=== PATIENT | female | born 1975 | race Caucasian/White ===

== ENCOUNTER 2019-07-27 19:49 | Inpatient (IN) | payer OTHER ==
[~2019-07-27] VITALS: Ht 160 cm; Wt 56.2 kg
[~2019-07-27 19:49] MED LIST: BENTYL; PROTONIX; Z.0.BENTYL20 MG PO; Z.0.LEXAPRO10 MG PO; Z.0.PROTONIX40 MG PO; [UNRECOGNIZED DRUG - OTHER]
[2019-07-27] MEDS ORDERED: SODIUM CHLORIDE 0.9% 1000ML 1,000 ML IV STA (19:59)
[2019-07-27] MEDS ORDERED: ONDANSETRON HCL INJ 2MG/ML 2ML 2 MG/ML VIAL IV NR (20:00)
[2019-07-27] MEDS ORDERED: DICYCLOMINE HCL 20 MG/2 ML VIAL IM ONE (20:00)
[2019-07-27] MEDS ORDERED: MORPHINE SULFATE INJ 4 MG/ML INJ 1ML IV NR (20:15)
[2019-07-27] MEDS ORDERED: DIATRIZOATE MEGL/DIATRIZOA SOD 30 ML BTL PO ONE (20:23)
[2019-07-27 20:39] LABS: BASOPHILS % 0.3 % (0.0-1.0); EOSINOPHILS # (AUTO) 0.1 (0.0-0.4); EOSINOPHILS % 0.6 % (0.0-6.0); HEMATOCRIT 27.7 % (34.2-44.1); HEMOGLOBIN 7.9 g/dL (12.0-16.0); LYMPHOCYTES # (AUTO) 1.2 (1.0-3.2); LYMPHOCYTES % 7.9 % (18.0-39.1); MEAN CORPUSCULAR HEMOGLOBIN 17.6 pg (28-32); MEAN CORPUSCULAR HGB CONC 28.5 g/dL (31-35); MEAN CORPUSCULAR VOLUME 61.7 fL (81-99); MONOCYTES # (AUTO) 2.8 (0.2-0.8); NEUTROPHILS # (AUTO) 11.1 (2.1-6.9); NEUTROPHILS % 72.1 % (38.7-80.0); PLATELET COUNT 1045 x10e3/uL (140-360); RED BLOOD COUNT 4.49 x10e6/uL (3.6-5.1); RED CELL DISTRIBUTION WIDTH 18.1 % (11.7-14.4)
[2019-07-27 20:57] LABS: ALBUMIN 3.9 g/dL (3.5-5.0); ALBUMIN/GLOBULIN RATIO 0.8 (0.8-2.0); ANION GAP 19.5 mmol/L (8-16); CALCIUM 10.6 mg/dL (8.4-10.2); CREATININE, SERUM 1.29 mg/dL (0.57-1.11); POTASSIUM 3.5 mmol/L (3.5-5.1)
[2019-07-27 21:03] LABS: CREATINE KINASE MB 1.2 ng/mL (0-5.0)
[2019-07-27] MEDS ORDERED: PIPER-TAZ 3.375 GM 50 ML IV ONE (21:33)
[2019-07-27] MEDS ORDERED: SODIUM CHLORIDE 0.9% 50ML 50 ML ONE (22:10)
[2019-07-27] MEDS ORDERED: IOPAMIDOL 370 MG/ML 200 ML INFUS..BTL INJ ONE (22:10)
[2019-07-27 22:23] LABS: BILIRUBIN,URINE NEGATIVE (NEGATIVE); CLARITY,URINE SL CLOUDY (CLEAR); COLOR,URINE YELLOW (YELLOW); KETONES,URINE NEGATIVE (NEGATIVE); LEUKOCYTE ESTERASE ,URINE NEGATIVE (NEGATIVE); NITRITE,URINE NEGATIVE (NEGATIVE); PROTEIN,URINE DIPSTICK TRACE (NEGATIVE); URINE UROBILINOGEN 0.2 mg/dL (0.2 - 1)
[2019-07-27 22:28] LABS: BACTERIA,URINE FEW /HPF; EPITHELIAL CELLS,URINE MANY /LPF
--- NOTE | 2019-07-27 22:32 | Diagnostic Imaging Report ---
CT Abdomen And Pelvis with Intravenous Contrast INDICATION: Nodule/vomiting, history of Crohn's disease ^abd pain TECHNIQUE: Thin collimation axial images obtained from the diaphragm to the level of the pubic symphysis following the uneventful administration of 100 cc of low osmolar, nonionic intravenous contrast. Dose reduction techniques used: Automated exposure control, adjustment of the mAs and/or kVp according to patient size, standardized low-dose protocol, and/or iterative reconstruction technique. RADIATION DOSE: Total DLP: 203.73 mGy*cm Estimated effective dose: (DLP x 0.015 x size factor) mSv CTDIvol has been reviewed. It is below the limits set by the Radiation Protocol Committee (RPC). COMPARISON: Report of CT of the abdomen/pelvis performed 06/27/2012. ABDOMEN FINDINGS: Lung Bases: Trace bibasilar atelectasis. Visualized portion of the mediastinum is normal Liver: Mild steatosis. No evidence for mass. Gallbladder: Present and appears normal. No biliary ductal dilatation. Pancreas: Normal attenuation without mass or ductal dilatation. Spleen: Normal in size. No evidence of mass.. Adrenal Glands: No evidence for mass. Kidneys: Right: Normal enhancement. No soft tissue mass. No hydronephrosis. Left: Normal enhancement. No soft tissue mass. No hydronephrosis. Aorta: Normal in diameter PELVIS FINDINGS: Bowel: Stomach: Distended with fluid. No mural thickening.. Small/large bowel: The large bowel appears to be absent. The distal small bowel is dilated to a diameter of 8 cm and is located predominantly in the midabdomen extending to the left of midline. The transition point is at the aortic bifurcation where the bowel is diffusely narrowed (axial image 52; coronal image 38) and takes a curved course. There is circumferential mural thickening and mural hyperemia with adjacent lymph node enlargement. Distal to this, the bowel contains fluid and semisolid stool. Other small bowel loops are distended with air. No associated mural thickening. Normal in caliber with normal wall thickness. Lymph nodes: Lymph nodes in the small bowel mesentery surrounding the luminal narrowing of the small bowel measuring up to 18 mm. Bladder: Normal. The uterus is present and normal in morphology. No adnexal mass. Peritoneum/retroperitoneum: No free fluid or fluid collection. Bones: Unremarkable for age. IMPRESSION: Status post total colectomy. High-grade partial small bowel obstruction possibly due to active Crohn's flare given the presence of surrounding lymphadenopathy. Another etiology to consider would be a high-grade stricture. There is no conclusive evidence of an internal hernia. Signed by: Dr. Pinky Peng MD on 07/27/2019 10:29 PM
[2019-07-27] MEDS ORDERED: PIPER-TAZ 3.375 GM 50 ML IV SCH (22:45)
--- OUTSIDE RECORDS SUMMARY | 2019-07-27 22:52 | XMS REPORT ---
Author [facility] Address Unknown Phone Unavailable Care Team Providers Care Plant Hr Manager Name Role Phone TREVOR MCINTOSH Unavailable Unavailable Problems This patient has no known problems. Allergies, Adverse Reactions, Alerts This patient has no known allergies or adverse reactions. Medications This patient has no known medications. Results Test Description Test Time Test Comments Text Results Atomic Results Result Comments CT ABDOMEN/PELVIS W 2019-07-27 22:15:00 [place] [id number] Patient Name: JAZMIN VASQUEZ MR #: [id number] : 1975 Age/Sex: 43/F Req #: [id number] Adm Physician: Ordered by: TREVOR MCINTOSH DO Report #: [id number] Location: ER Room/Bed: Procedure: [id number] CT/CT ABDOMEN/PELVIS W Exam Date: 07/27/19 Exam Time: 2155 REPORT STATUS: Signed CT Abdomen And Pelvis with Intravenous Contrast INDICATION: Nodule/vomiting, history of Crohn's disease abd pain TECHNIQUE: Thin collimation axial images obtained from the diaphragm to the level of the pubic symphysis following the uneventful administration of 100 cc of low osmolar, nonionic intravenous contrast. Dose reduction techniques used: Automated exposure control, adjustment of the mAs and/or kVp according to patient size, standardized low-dose protocol, and/or iterative reconstruction technique. RADIATION DOSE: Total DLP: 203.73 mGy*cm Estimated effective dose: (DLP x 0.015 x size factor) mSv CTDIvol has been reviewed. It is below the limits set by the Radiation Protocol Committee (RPC). COMPARISON: Report of CT of the abdomen/pelvis performed 06/27/2012. ABDOMEN FINDINGS: Lung Bases: Trace bibasilar atelectasis. Visualized portion of the mediastinum is normal Liver: Mild steatosis. No evidence for mass. Gallbladder: Present and appears normal. No biliary ductal dilatation. Pancreas: Normal attenuation without mass or ductal dilatation. Spleen: Normal in size. No evidence of mass.. Adrenal Glands: No evidence for mass. Kidneys: Right: Normal enhancement. No soft tissue mass. No hydronephrosis. Left: Normal enhancement. No soft tissue mass. No hydronephrosis. Aorta: Normal in diameter PELVIS FINDINGS: Bowel: Stomach: Distended with fluid. No mural thickening.. Small/large bowel: The large bowel appears to be absent. The distal small bowel is dilated to a diameter of 8 cm and is located predominantly in the midabdomen extending to the left of midline. The transition point is at the aortic bifurcation where the bowel is diffusely narrowed (axial image 52; coronal image 38) and takes a curved course. There is circumferential mural thickening and mural hyperemia with adjacent lymph node enlargement. Distal to this, the bowel contains fluid and semisolid stool. Other small bowel loops are distended with air. No associated mural thickening. Normal in caliber with normal wall thickness. Lymph nodes: Lymph nodes in the small bowel mesentery surrounding the luminal narrowing of the small bowel measuring up to 18 mm. Bladder: Normal. The uterus is present and normal in morphology. No adnexal mass. Peritoneum/retroperitoneum: No free fluid or fluid collection. Bones: Unremarkable for age. IMPRESSION: Status post total colectomy. High-grade partial small bowel obstruction possibly due to active Crohn's flare given the presence of surrounding lymphadenopathy. Another etiology to consider would be a high- grade stricture. There is no conclusive evidence of an internal hernia. Signed by: Dr. Branden Peng MD on 07/27/2019 10:29 PM Dictated By: BRANDEN PENG MD [id number] Transcribed By: BIRD on 07/27/19 2221 COPY TO: TREVOR MCINTOSH, DO
[2019-07-27 23:23] VITALS: BP 132/82
[2019-07-27] MEDS: MORPHINE SULFATE INJ 4 MG/ML INJ 1ML IV PRN (23:57)
[2019-07-27] MEDS: ONDANSETRON HCL INJ 2MG/ML 2ML 2 MG/ML VIAL IV PRN (23:58)
[2019-07-28] VITALS (9 sets, daily range): BP systolic 117–136; BP diastolic 72–82
--- NOTE | 2019-07-28 01:11 | NUR ---
PT ARRIVED ON THE FLOOR AT 2323 VIA STRETCHER WITH DAUGHTER AT BEDSIDE. RESPIRATION IS EVEN AND UNLABORED, NO DISTRESS NOTED. PT ORIENTED TO THE ROOM, BED IN LOWEST POSITION, LOCKED, AND CALL LIGHT WITHIN REACH. ADMISSION AND HEAD TO TOE ASSESSMENT COMPLETE. WILL CONTINUE TO MONITOR.
[2019-07-28] MEDS ORDERED: SODIUM CHLORIDE 0.9% 250ML 250 ML ONE (04:01)
[2019-07-28] MEDS: ONDANSETRON HCL INJ 2MG/ML 2ML 2 MG/ML VIAL IV PRN ×4 (04:18→20:30)
[2019-07-28] MEDS: MORPHINE SULFATE INJ 4 MG/ML INJ 1ML IV PRN ×5 (04:18→20:30)
[2019-07-28] MEDS: PIPER-TAZ 3.375 GM 50 ML IV SCH ×3 (04:18→16:16)
--- NOTE | 2019-07-28 08:30 | NUR ---
PT UP IN BED C/O ABD PAIN MEDICATED
[2019-07-28] MEDS ORDERED: ACETAMINOPHEN 1000 MG/100 ML IV PRN (11:15)
[2019-07-28] MEDS ORDERED: ACETAMINOPHEN 1000 MG/100 ML IV SCH (12:00)
[2019-07-28] MEDS: DEXTROSE 5%/0.45% SOD CHL 1,000 ML IV SCH ×2 (12:15→20:30)
[2019-07-28] MEDS ORDERED: METHYLPREDNISOLONE SOD SUCC 40 MG/ML VIAL 1ML IV SCH (14:00)
--- NOTE | 2019-07-28 17:00 | NUR ---
DR GRAY HERE,PT C/O ABD MEDICATED EARLIER
--- NOTE | 2019-07-28 19:30 | NUR ---
patient received lying quietly in bed. patient appears to be sleeping soundly. no c/o pain noted. ivf continue to infuse without difficulty. pm assessment complete. patient instructed to call for assistance when needed.
--- NOTE | 2019-07-28 19:32 | Consultation ---
DATE OF CONSULTATION: HISTORY OF PRESENT ILLNESS: A 43-year-old female with history of colitis. First she said she had ulcerative colitis, which progressed into Crohn's disease. According to her record, she had a Crohn's disease. However, about 20 years ago, she had a total colectomy with ileoanal anastomosis. Last time she saw a agriculturist 6-7 years ago. She had been having on and off little flare up that she does not seek any medical health until this episode was so severe, brought her to the emergency room. She started a week ago complaining of abdominal pain, initially was intermediate then progressed to constant, severe, sharp, crampy pain associated with nausea and vomiting. Last time, she vomited yesterday. Subjective fever and chills. She said she lost 14 pounds in the past two weeks and she noticed more liquidy stool becoming, but no blood. ALLERGIES: PENICILLIN. CURRENT MEDICATIONS: 1. Piperacillin/tazobactam. 2. Morphine. 3. Zofran. 4. Solu-Medrol 40 mg every 8 hours. PAST SURGICAL HISTORY: Tubal ligation and total colectomy. SOCIAL HISTORY: She does not smoke or drink. PHYSICAL EXAMINATION: GENERAL: Awake, alert, and oriented. VITAL SIGNS: Temperature 98.7, pulse 86, and blood pressure 118/75. EYES: Normal sclerae. NECK: Supple. LUNGS: Clear. HEART: Irregularly irregular rhythm. ABDOMEN: Not distended, however, mildly tender, soft. Bowel sounds very few and pitched. EXTREMITIES: No edema. CENTRAL NERVOUS: Motor function grossly intact. LABORATORY DATA: White cell count 15,000, hemoglobin 7.9, hematocrit 27, and platelet 1000. Urinalysis unremarkable. BUN 30 and creatinine 1.29. Sodium 127, potassium 3.5, calcium 10, alkaline phosphatase normal, AST normal, ALT normal, total bilirubin normal, total protein elevated 8.8, and albumin 3.9. Urine and blood culture are both pending. IMPRESSION: History of colitis. I am not sure whether it is ulcerative colitis or Crohn's disease. The patient mentioned both of them. Lost to followup from the past 6-7 years now with her CT scan of the abdomen with contrast showing of course the total colectomy in addition to high-grade partial small bowel obstruction, possible stricture, possible flare up of her Crohn's disease. PLAN: My plan for her today, keep her n.p.o., obtain surgical consultation, change her Solu-Medrol to 60 mg IV 24 hours. Start on IV metronidazole. Check her serum reactive protein, check her sedimentation rate, check her stool calprotectin, and we will follow. Shahzad Vasques MD RD/JM /[id number]
--- NOTE | 2019-07-28 20:30 | NUR ---
patient medicated with morphine 4mg and zofran 4mg ivp for c/o abd pain 03/24 at this time per patients request.
[2019-07-28 21:42] LABS: FERRITIN 33.84 ng/mL (4.63-204.00)
[2019-07-28] MEDS: METRONIDAZOLE 500MG/NS 100ML 100 ML IV SCH (22:00)
[2019-07-29] VITALS (8 sets, daily range): BP systolic 104–128; BP diastolic 65–73
[2019-07-29] MEDS: ONDANSETRON HCL INJ 2MG/ML 2ML 2 MG/ML VIAL IV PRN ×6 (01:45→23:44)
[2019-07-29] MEDS: MORPHINE SULFATE INJ 4 MG/ML INJ 1ML IV PRN ×6 (01:45→23:44)
--- NOTE | 2019-07-29 01:45 | NUR ---
patient medicated with morphine 4mg and zofran 4mg ivp for c/o abd pain 03/24 at this time per patients request.
[2019-07-29] MEDS: DEXTROSE 5%/0.45% SOD CHL 1,000 ML IV SCH ×4 (05:10→21:35)
[2019-07-29] MEDS: METRONIDAZOLE 500MG/NS 100ML 100 ML IV SCH ×3 (05:10→21:59)
[2019-07-29 07:13] LABS: BASOPHILS % 0.2 % (0.0-1.0); EOSINOPHILS # (AUTO) 0.1 (0.0-0.4); EOSINOPHILS % 0.4 % (0.0-6.0); LYMPHOCYTES # (AUTO) 1.7 (1.0-3.2); LYMPHOCYTES % 10.8 % (18.0-39.1); MEAN CORPUSCULAR HEMOGLOBIN 17.4 pg (28-32); MEAN CORPUSCULAR HGB CONC 27.4 g/dL (31-35); MEAN CORPUSCULAR VOLUME 63.5 fL (81-99); MONOCYTES # (AUTO) 2.2 (0.2-0.8); MONOCYTES % 14.1 % (4.4-11.3); NEUTROPHILS % 70.6 % (38.7-80.0); PLATELET COUNT 608 x10e3/uL (140-360); RED BLOOD COUNT 3.56 x10e6/uL (3.6-5.1)
[2019-07-29 07:27] LABS: HEMATOCRIT 22.6 % (34.2-44.1); HEMOGLOBIN 6.2 g/dL (12.0-16.0)
--- NOTE | 2019-07-29 07:31 | NUR ---
Paged DR Helena Roy critical Lab Hgb 6.2, patient not in any distress
[2019-07-29 07:32] LABS: ALBUMIN 2.8 g/dL (3.5-5.0); ALBUMIN/GLOBULIN RATIO 0.8 (0.8-2.0); ALKALINE PHOSPHATASE 99 IU/L (40-150); ANION GAP 13.2 mmol/L (8-16); BLOOD UREA NITROGEN 9 mg/dL (7-26); BUN/CREATININE RATIO 15 (6-25); CALCIUM 9.1 mg/dL (8.4-10.2); CARBON DIOXIDE 25 mmol/L (22-29); CHLORIDE 97 mmol/L (98-107); CREATININE, SERUM 0.59 mg/dL (0.57-1.11); EST GLOMERULAR FILTRATION RATE > 60 ML/MIN (60-); GLUCOSE 118 mg/dL (74-118); POTASSIUM 3.2 mmol/L (3.5-5.1); SODIUM 132 mmol/L (136-145)
--- NOTE | 2019-07-29 08:03 | NUR ---
New order from Dr Helena Roy to repeat Lab H&H now
[2019-07-29 08:22] LABS: ALANINE AMINOTRANSFERASE < 6 IU/L (0-55)
[2019-07-29] MEDS: METHYLPREDNISOLONE SOD SUCC 40 MG/ML VIAL 1ML IV SCH (08:48)
[2019-07-29 09:41] LABS: HEMATOCRIT 22.2 % (34.2-44.1); HEMOGLOBIN 6.2 g/dL (12.0-16.0)
--- NOTE | 2019-07-29 09:48 | Diagnostic Imaging Report ---
EXAMINATION: ABDOMEN ACUTE SERIES W/PA CXR INDICATION: Small bowel obstruction COMPARISON: CT abdomen and pelvis of 07/27/2019 FINDINGS: LINES/TUBES:EKG leads overlie the chest. LUNGS:The lungs are mildly hyperinflated. Mild bibasilar subsegmental atelectasis. No focal consolidation or pulmonary edema. PLEURA:No pleural effusion or pneumothorax. MEDIASTINUM:The cardiomediastinal silhouette appears normal in size and shape. BONES/SOFT TISSUES:No acute osseous injury. ABDOMEN:Again seen are air-filled distended loops of large and small bowel measuring up to 9.2 cm maximum diameter in the right upper quadrant. No free air. No pneumatosis. IMPRESSION: Air-filled loops of large and small bowel, not significantly changed from the prior CT of 07/27/2019. No free air. No focal pneumonia or pulmonary edema. Signed by: Matt Hudson MD on 07/29/2019 9:44 AM
--- NOTE | 2019-07-29 09:54 | NUR ---
paged Dr Helena Roy with lab Hgb 6.2
[2019-07-29] MEDS ORDERED: SODIUM CHLORIDE 0.9% 250ML 250 ML IV ONE (11:00)
[2019-07-29 12:24] LABS: BAND NEUTROPHILS % (MANUAL) 17 %; LYMPHOCYTES % (MANUAL) 6 % (19-48); MONOCYTES % (MANUAL) 17 % (3.4-9.0); NEUTROPHILS % (MANUAL) 60 % (40-74)
[2019-07-29 12:25] LABS: ANISOCYTOSIS MODERATE; ELLIPTOCYTE, RBC SLIGHT; MICROCYTOSIS SLIGHT; OVALOCYTES MODERATE; POIKILOCYTOSIS MODERATE; POLYCHROMASIA FEW; RBC MORPHOLOGY COMMENT ABNORMAL
[2019-07-29 12:26] LABS: PLATELET ESTIMATE MODERATELY INCREASED; PLATELET MORPHOLOGY COMMENT FEW LARGE
[2019-07-29] MEDS ORDERED: FUROSEMIDE INJ 10 MG/ML 2 ML VIAL IV NR (14:00)
[2019-07-29] MEDS ORDERED: SODIUM CHLORIDE 0.9% 250ML 250 ML ONE (15:39)
--- NOTE | 2019-07-29 15:45 | NUR ---
Nutrition Screen Note RD Recommendation for Physician: -Advance to GI soft diet when medically appropriate -The patient meets criteria for acute SEVERE protein-calorie malnutrition. Plan of Care: RD following, monitoring for tolerance and adequacy Nutrition reason for involvement: MST Primary Diagnose(s): acute Crohns disease with intestinal blockage PMH: Crohns disease, total colectomy Ht:63 in Wt:124 lb BMI: 22 kg/m2 IBW:[address] Assessment: (07/29/19) Chart reviewed. Labs and meds reviewed. Pt is a 43 year old female admitted with acute Crohns disease with intestinal blockage. Pt is currently NPO. Prior to admission, pt reported she was eating <50% of meals for 2 weeks. Prior to this time period, pt was eating > 50% of meals. Pt also mentioned she had lost 14 lbs in the past 2 weeks and used to weigh 138 lbs. Pt currently has a wt of 124 lbs in chart. If accurate, this would be a 10% wt loss in 2 weeks severe wt loss. Pt also mentioned she vomited last night. Will continue to monitor. Current Diet: NPO Malnutrition Evaluation (07/29/19) The patient meets criteria for acute SEVERE protein-calorie malnutrition. Energy intake: <50% of estimated energy requirements for >5 days Weight loss: 10% wt loss in 2 weeks Fat loss: no loss identified Muscle loss: no loss identified Supporting Evidence: Fluid accumulation: No edema per MD note Functional Status: unable to evaluate Diet Education Needs Assessment: Diet education not indicated at this time Nutrition Care Level: Moderate Signed: Margret Dawn, RD, LD
--- NOTE | 2019-07-29 16:25 | NUR ---
First unit of blood started @16.10, no adverse reaction noted in 15 min, keep monitoring
--- NOTE | 2019-07-29 16:47 | NUR ---
Dr Vasques had rounds, stated patient should be in NPO, New order recvd for low potassium level
[2019-07-29] MEDS ORDERED: POTASSIUM CHLORIDE 20 MEQ TAB CR PO ONE (16:48)
[2019-07-29] MEDS ORDERED: POTASSIUM CHLORIDE 10MEQ/100ML 200 ML IV ONE (17:00)
--- NOTE | 2019-07-29 18:13 | Progress Note ---
DATE: SUBJECTIVE: Ms. Sloan is doing better today. She is feeling more comfortable, less abdominal pain, only one episode of vomiting today. She had 2 small bowel movements today. She is passing gas. PHYSICAL EXAMINATION: VITAL SIGNS: She is afebrile. GENERAL: Awake, alert, hemodynamically stable. ABDOMEN: Soft, nontender. Bowel sounds present. LABORATORY DATA: Her recent lab test, ESR 62. Iron saturation 2%. Hemoglobin and hematocrit are down to 6 and 21, and she is pending to get 2 units of blood transfusion. Her BUN is 9, creatinine 0.59, sodium 132, potassium 3.2. Her serum reactive protein, stool calprotectin, RBC, folate are still pending. Her B12 is normal. We will continue current care. Tomorrow, we may start her on liquid diet and at some point, may repeat the CT scan to make sure either her stricture resolved due to inflammatory bowel disease or may be she has more reason for stricture such as fibrosis or malignancy that is need to be surgically evaluated. Shahzad Vasques MD RD/JM /[id number]
[2019-07-29] MEDS: FERROUS SULFATE 325 MG TAB PO SCH (18:57)
[2019-07-29] MEDS ORDERED: FUROSEMIDE INJ 10 MG/ML 2 ML VIAL IV ONE (19:00)
--- NOTE | 2019-07-29 19:18 | NUR ---
WALKING ROUNDS PERFORMED, RECEIVED PT AMBULATING IN ROOM, STEADY GAIT NOTED. PT IS AAOX3, RR EVEN AND NON-LABORED, ON ROOM AIR. LEFT PT LAYING SEMI FOWLERS IN BED, BED IN LOW LOCKED POSITION, SIDE RAILS UPX2, CALL LIGHT AND PHONE WITHIN REACH.
[2019-07-30] VITALS (16 sets, daily range): BP systolic 113–133; BP diastolic 72–85
[2019-07-30] MEDS ORDERED: SODIUM CHLORIDE 0.9% 250ML 250 ML ONE (01:57)
--- NOTE | 2019-07-30 02:25 | NUR ---
PT TOLERATING BLOOD TRANSFUSION, INCREASED TRANSFUSION RATE TO 125ML/HR.
[2019-07-30] MEDS: METRONIDAZOLE 500MG/NS 100ML 100 ML IV SCH ×3 (05:28→23:00)
[2019-07-30] MEDS: ONDANSETRON HCL INJ 2MG/ML 2ML 2 MG/ML VIAL IV PRN ×4 (05:33→20:45)
[2019-07-30] MEDS: MORPHINE SULFATE INJ 4 MG/ML INJ 1ML IV PRN ×4 (05:33→20:45)
--- NOTE | 2019-07-30 07:15 | NUR ---
PATIENT IN BED RESTING WITH NO S/S OF DISCOMFORT. IV FLUID INFUSING ORDERED. BED IN LOWER POSITION, CALL LIGHT AT REACH.
[2019-07-30] MEDS: METHYLPREDNISOLONE SOD SUCC 40 MG/ML VIAL 1ML IV SCH (09:09)
[2019-07-30] MEDS: FERROUS SULFATE 325 MG TAB PO SCH ×2 (10:30→17:53)
[2019-07-30] MEDS: ASCORBIC ACID 500 MG TAB PO SCH (10:30)
[2019-07-30 11:07] LABS: HEMATOCRIT 30.3 % (34.2-44.1); HEMOGLOBIN 8.8 g/dL (12.0-16.0)
--- NOTE | 2019-07-30 11:07 | NUR ---
MD IN TO SEE PATIENT, NEW ORDERS RECEIVED.
[2019-07-30] MEDS: DEXTROSE 5%/0.45% SOD CHL 1,000 ML IV SCH ×2 (11:30→21:00)
--- NOTE | 2019-07-30 16:40 | NUR ---
PATIENT ASSISTED WITH SHOWER, BACK IN BED WITH CALL LIGHT AT REACH.
--- NOTE | 2019-07-30 20:35 | Progress Note ---
DATE: 07/30/2019 SUBJECTIVE: Doing well. She feels much comfortable, less abdominal pain. No nausea, no vomiting. She has three bowel movements today. Tolerating her liquid diet well. PHYSICAL EXAMINATION: VITAL SIGNS: Temperature is 96.9, pulse 79, and blood pressure 121/76. LABORATORY DATA: No recent lab test today. Her (RBC) folate is still pending. Her stool calprotectin is still pending. Also, her serum reactive protein is still pending. PLAN: My plan for her is to continue current care. Tomorrow, we may switch her IV steroids to p.o. steroid. At some point, she needs to have repeat CT scan of the abdomen to re-evaluate the small bowel stricture due to Crohn disease, which has been untreated for quite some time. Shahzad Vasques MD RD/JM /[id number]
--- NOTE | 2019-07-30 20:45 | NUR ---
PATIENT IS IN STABLE CONDITION, NO SIGNS OF DISTRESS NOTED. IV IS RUNNING AT ORDERED RATE AND PATIENT VOICED PAIN AT A LEVEL OF 7 AND WAS MEDICATED ORDERED. BED IS IN LOWEST POSITION, BOTH SIDE RAILS ARE UP, CALL LIGHT WITHIN REACH, WILL CONTINUE TO MONITOR.
[2019-07-31] VITALS (8 sets, daily range): BP systolic 116–133; BP diastolic 67–87
[2019-07-31] MEDS: ONDANSETRON HCL INJ 2MG/ML 2ML 2 MG/ML VIAL IV PRN ×5 (02:50→21:41)
[2019-07-31] MEDS: MORPHINE SULFATE INJ 4 MG/ML INJ 1ML IV PRN ×5 (02:50→21:48)
[2019-07-31] MEDS: METRONIDAZOLE 500MG/NS 100ML 100 ML IV SCH (06:06)
[2019-07-31] MEDS: DEXTROSE 5%/0.45% SOD CHL 1,000 ML IV SCH (06:08)
[2019-07-31 06:48] LABS: MAGNESIUM 1.5 MG/DL (1.3-2.1)
--- NOTE | 2019-07-31 07:35 | NUR ---
PATIENT C/O ABDOMINAL PAIN. PAIN MEDICATION ADMINISTERED ORDERED. WILL CONTINUE TO MONITOR.
[2019-07-31] MEDS: FERROUS SULFATE 325 MG TAB PO SCH ×2 (08:57→17:17)
[2019-07-31] MEDS: ASCORBIC ACID 500 MG TAB PO SCH (08:57)
[2019-07-31] MEDS: METHYLPREDNISOLONE SOD SUCC 40 MG/ML VIAL 1ML IV SCH (08:57)
--- NOTE | 2019-07-31 11:50 | NUR ---
PATIENT ASSISTED TO THE RESTROOM AND BACK TO BED, CALL LIGHT AT REACH.
[2019-07-31] MEDS ORDERED: LEVOFLOXACIN 500 MG TAB PO SCH (13:30)
[2019-07-31] MEDS ORDERED: POTASSIUM CHLORIDE 10MEQ/100ML 100 ML IV ONE ×2 (13:30→19:00)
[2019-07-31] MEDS ORDERED: POTASSIUM CHLORIDE 20 MEQ TAB CR PO NR ×2 (13:45→17:30)
[2019-07-31] MEDS: METRONIDAZOLE 500 MG TAB PO SCH ×2 (14:16→21:39)
--- NOTE | 2019-07-31 14:38 | Progress Note ---
DATE: SUBJECTIVE: She is doing great. Awake, alert, oriented. Tolerating her diet well. She is having bowel movement. Has no complaint of abdominal discomfort. OBJECTIVE: GENERAL: Hemodynamically stable. VITAL SIGNS: Afebrile. ABDOMEN: Soft, nontender. LABORATORY DATA: Her sodium normal. Potassium 3. Serum reactive protein is still pending. Stool calprotectin is still pending. ASSESSMENT AND PLAN: My plan for her today; continue her diet, Hep-Lock her IV. Change IV steroids to p.o. steroid, change her Flagyl to p.o. Flagyl, start her on Levaquin p.o. and replace her potassium, which given to the nurse as an order. Shahzad Vasques MD RD/MODL /[id number]
--- NOTE | 2019-07-31 16:49 | NUR ---
SPOKE WITH MD REGARDING ABNORMAL LAB RESULT, NEW ORDERS RECEIVED.
--- NOTE | 2019-07-31 19:08 | NUR ---
Bed side shift report taken from morning Tess in the bed.stable condition.
[2019-07-31] MEDS: LEVOFLOXACIN 500 MG TAB PO SCH (20:30)
--- NOTE | 2019-07-31 22:30 | NUR ---
Assessment done.no resp.distress.pain medication given.voided.bed locked and in lowest position.phone and call light within reach.instructed to call for assistance as needed.
[2019-08-01] VITALS (8 sets, daily range): BP systolic 114–138; BP diastolic 67–90
[2019-08-01] MEDS: ONDANSETRON HCL INJ 2MG/ML 2ML 2 MG/ML VIAL IV PRN ×5 (01:40→20:28)
[2019-08-01] MEDS: MORPHINE SULFATE INJ 4 MG/ML INJ 1ML IV PRN ×5 (01:40→20:29)
[2019-08-01] MEDS: METRONIDAZOLE 500 MG TAB PO SCH ×3 (05:59→21:19)
[2019-08-01 06:20] LABS: BASOPHILS % 0.2 % (0.0-1.0); EOSINOPHILS # (AUTO) 0.1 (0.0-0.4); EOSINOPHILS % 0.5 % (0.0-6.0); HEMATOCRIT 29.7 % (34.2-44.1); HEMOGLOBIN 8.6 g/dL (12.0-16.0); LYMPHOCYTES # (AUTO) 5.1 (1.0-3.2); LYMPHOCYTES % 25.5 % (18.0-39.1); MEAN CORPUSCULAR HEMOGLOBIN 19.4 pg (28-32); MEAN CORPUSCULAR VOLUME 66.9 fL (81-99); MONOCYTES # (AUTO) 1.3 (0.2-0.8); MONOCYTES % 6.7 % (4.4-11.3); NEUTROPHILS % 45.1 % (38.7-80.0); PLATELET COUNT 517 x10e3/uL (140-360); RED BLOOD COUNT 4.44 x10e6/uL (3.6-5.1); RED CELL DISTRIBUTION WIDTH 20.8 % (11.7-14.4)
[2019-08-01 06:39] LABS: ANION GAP 12.8 mmol/L (8-16); BLOOD UREA NITROGEN 8 mg/dL (7-26); BUN/CREATININE RATIO 13 (6-25); CALCIUM 8.8 mg/dL (8.4-10.2); CARBON DIOXIDE 25 mmol/L (22-29); CHLORIDE 103 mmol/L (98-107); CREATININE, SERUM 0.62 mg/dL (0.57-1.11); EST GLOMERULAR FILTRATION RATE > 60 ML/MIN (60-); GLUCOSE 96 mg/dL (74-118); POTASSIUM 3.8 mmol/L (3.5-5.1); SODIUM 137 mmol/L (136-145)
--- NOTE | 2019-08-01 06:55 | NUR ---
Bed side shift report given to the oncoming Rn.stable condition.
--- NOTE | 2019-08-01 07:10 | NUR ---
PATIENT IN BED RESTING WITH HEAD OF BED ELEVATED, NO DISTRESS NOTED. BED IN LOWER POSITION, CALL LIGHT AT REACH.
[2019-08-01 07:36] LABS: BAND NEUTROPHILS % (MANUAL) 16 %; EOSINOPHILS % (MANUAL) 2 % (0-7); HYPOCHROMASIA MODERATE; LYMPHOCYTES % (MANUAL) 14 % (19-48); MONOCYTES % (MANUAL) 5 % (3.4-9.0); NEUTROPHILS % (MANUAL) 63 % (40-74); POLYCHROMASIA FEW
[2019-08-01 07:37] LABS: ANISOCYTOSIS MODE; MICROCYTOSIS SLIG; OVALOCYTES FEW; PLATELET ESTIMATE SLIGHTLY INCREASED; PLATELET MORPHOLOGY COMMENT FEW LARGE; POIKILOCYTOSIS MODE; RBC MORPHOLOGY COMMENT ABNORMAL
[2019-08-01] MEDS: FERROUS SULFATE 325 MG TAB PO SCH ×2 (08:56→17:19)
[2019-08-01] MEDS: PREDNISONE 20 MG TAB PO SCH (08:56)
[2019-08-01] MEDS: ASCORBIC ACID 500 MG TAB PO SCH (08:56)
--- NOTE | 2019-08-01 15:40 | NUR ---
Visit made by the Spiritual Care Department Pastoral Visitor, Ssuhil Brewster. Pt unavailable at this time. PRITESH Sharplain Spiritual Care Department O: [phone] Pager: [phone] ([phone] number calling from)
--- NOTE | 2019-08-01 16:43 | NUR ---
PATIENT ASSISTED WITH SHOWER. IN BED WITH CALL LIGHT AT REACH.
--- NOTE | 2019-08-01 19:02 | NUR ---
Bed side shift report taken from morning Rn.stable condition.
[2019-08-01] MEDS: LEVOFLOXACIN 500 MG TAB PO SCH (20:28)
--- NOTE | 2019-08-01 21:00 | NUR ---
Medicated with morphine 4mg iv.Assessment done.no resp.distress .aaox3.ambulatory .voided.bed locked and in lowest position.phone and call light within reach.instructed to call for assistance as needed.
[2019-08-02] VITALS: BP 136/84
[2019-08-02] MEDS: ONDANSETRON HCL INJ 2MG/ML 2ML 2 MG/ML VIAL IV PRN ×3 (00:45→10:00)
[2019-08-02] MEDS: MORPHINE SULFATE INJ 4 MG/ML INJ 1ML IV PRN ×3 (00:45→10:00)
[2019-08-02 04:00] VITALS: BP 121/77
[2019-08-02] MEDS: METRONIDAZOLE 500 MG TAB PO SCH ×2 (05:23→14:11)
--- NOTE | 2019-08-02 07:00 | NUR ---
Bed side shift report given to the oncoming rn.stable condition.
--- NOTE | 2019-08-02 07:01 | NUR ---
walking rounds completed with night auditor rn; pt in stable condition, will continue to monitor.
[2019-08-02 07:55] VITALS: BP 131/74
[2019-08-02 08:23] VITALS: BP 131/74
[2019-08-02] MEDS: ASCORBIC ACID 500 MG TAB PO SCH (10:06)
[2019-08-02] MEDS: FERROUS SULFATE 325 MG TAB PO SCH (10:06)
[2019-08-02] MEDS: PREDNISONE 20 MG TAB PO SCH (10:06)
[2019-08-02 11:13] VITALS: BP 141/94
--- NOTE | 2019-08-02 12:47 | NUR ---
RECEIVED CALLBACK FROM DR MONTALVO; HE STATES HE WILL ROUND AROUND 1500 TODAY AND SEE PT TO DETERMINE DISCHARGE.
[2019-08-02 15:43] VITALS: BP 139/87
--- NOTE | 2019-08-02 16:30 | NUR ---
spoke with Dr. Vasques at bedside; he states pt can be discharged from his standpoint. He requests pt be discharged with dietary consult to educate pt on a low ruffage diet. Called brickmason supervisor several times with no answer; left message. spoke with Charge nurse who recommends giving pt printed education information on MD recommended diet.
--- NOTE | 2019-08-02 16:42 | Progress Note ---
DATE: SUBJECTIVE: Ms. Sloan has a history of inflammatory bowel disease and not clear to me from the record whether it is Crohn or ulcerative colitis. She was lost to follow up by her manager production in the past 7 years. She came with abdominal pain. CT scan showed a stricture in the terminal ileum. She has had in the past, according to the records, total colectomy with ileoanal anastomosis. Initially, she was placed on n.p.o., then when her symptoms subsided, she was started on soft diet. She also started initially on IV prednisone, switched to oral prednisone and also antibiotic were switched to orally, Flagyl and Levaquin as she progressed and she become asymptomatic. Today, she is doing fine. She has no abdominal discomfort. No nausea. No vomiting. She had a bowel movement. Tolerating her diet well, hemodynamically stable, and abdomen not tender, not distended. Her lab tests in the hospital show a sedimentation rate of 62, serum reactive protein highly elevated at 204. Calprotectin was ordered, but was not done. She was noted to be anemic. Anemia workup was done, revealed iron saturation of 2, and B12 and RBC, folate and reticulocyte count are normal. She will be going home. I instructed her to call SHANI, Dr. Morgan Roy's office to get a followup appointment next week to monitor her prednisone and taper it as needed. According to her response, to continue her antibiotic, to continue her iron and vitamin C for iron deficiency anemia and Dr. Roy may pursue a GI workup because of that. The patient was advised to see him next week. Shahzad Vasques MD RD/MODL /[id number]
[2019-08-02] MEDS ORDERED: LEVAQUIN500 MG PO (17:05)
[2019-08-02] MEDS ORDERED: PREDNISONE20 MG PO (17:07)
[2019-08-02] MEDS ORDERED: ACIDOPHILUS1 EAC1 PO (17:25)
[2019-08-02] MEDS ORDERED: FLAGYL250 MG PO (17:25)
[2019-08-05] MEDS ORDERED: IRON PO (14:33)
== END 2019-08-02 17:45 | disposition home or self-care (01) | DRG 386 ==
LOC: ER 19:49 → ERHOLD 22:43 → MED/SURG3 23:25
PROC: 30233N1 Transfusion of Nonautologous Red Blood Cells into Peripheral Vein, Percutaneous Approach (ICD-10-PCS; principal; 2019-07-29)
DX: K50.012 Crohn's disease of small intestine with intestinal obstruction (principal); E44.0 Moderate protein-calorie malnutrition; K63.89 Other specified diseases of intestine; Z98.0 Intestinal bypass and anastomosis status; Z88.0 Allergy status to penicillin; Z82.49 Family history of ischemic heart disease and other diseases of the circulatory system; D50.9 Iron deficiency anemia, unspecified; Z68.22 Body mass index [BMI] 22.0-22.9, adult
CPT/HCPCS: 36415; 74022; 74177; 80048; 80051; 80053; 81001; 82550; 82553; 82607; 82728; 82747; 83540; 83605; 83690; 83735; 84466; 84484; 85014; 85018; 85025; 85651; 86140; 86850; 86900; 86920; 87040; 87086; 99284; J0500; J1940; J2270; J2405; J2543; J2920; J3480; J7030; J7050; J7512; P9016; Q9967

== ENCOUNTER → 2019-08-07 | Day surgery (SDC) | payer OTHER ==
[~2019-08-07] MED LIST changes: +ACIDOPHILUS1 EAC1 PO; +FENTANYL CITRATE/PF 100MCG/2 ML INJ ONE; +FLAGYL250 MG PO; +HYOSCYAMINE 0.125 MG TAB ONE; +IRON PO; +LEVAQUIN500 MG PO; +MIDAZOLAM HCL 2 MG/2 ML VIAL ONE; +PREDNISONE20 MG PO; +PROPOFOL IV EMULSION 10 MG/ML 50 ML VIAL ONE
[2019-08-07 13:16] LABS: WBC,FECAL (FECAL LACTOFERRIN) POSITIVE (NEGATIVE)
[2019-08-07 14:20] LABS: C DIFFICILE TOXIN A&B AMP PROB NEGATIVE (NEGATIVE)
--- NOTE | 2019-08-07 18:42 | Operative Report ---
DATE OF PROCEDURE: 08/07/2019 SURGEON: Morgan Roy MD PROCEDURES: EGD and colonoscopy. INDICATIONS FOR EGD: Anemia, history of Crohn disease. INDICATIONS FOR COLONOSCOPY: Diarrhea, anemia. The patient is status post colectomy with IPAA for IBD. MEDICATIONS: The patient was done under MAC, please see anesthesiologist's note. PROCEDURE IN DETAIL: With the patient in left lateral decubitus position, a flexible fiberoptic Olympus gastroscope was introduced into the esophagus under direct visualization without any difficulty. There was some patchy erythema noted in distal esophagus. The scope was then advanced with ease into the stomach and mucosa overlying the antrum and the body revealed some patchy erythema and low-grade to moderate edema and biopsies were obtained, sent to stain for H pylori. Pylorus was of normal contour and shape, was intubated with ease and the scope was advanced all the way to the second portion of the duodenum. Biopsies were obtained from the proximal second portion and duodenal bulb to rule out sprue. The scope was then withdrawn back into the stomach and retroflexed and mucosa overlying the fundus and cardia appeared to be within normal limits. The scope was then straightened out, it was subsequently withdrawn. The patient tolerated the procedure well. IMPRESSION: 1. Distal esophagitis, mild. 2. Gastritis, biopsied. Biopsies sent to stain for H pylori. 3. Rule out sprue. PLAN: Follow up histology. Initiate Protonix 40 mg one p.o. q.a.m. a.c. The patient was then turned around. After adequate lubrication of the anal canal, a flexible fiberoptic Olympus colonoscope was inserted into the pouch. The mucosa overlying the pouch overall appeared within normal limits. Biopsies were obtained. The scope was then advanced into the neoterminal ileum and scattered ulcerations some of which were serpiginous were noted. There was normal intervening mucosa. There were no active bleeding or stigmata of recent hemorrhage. Biopsies were obtained. The scope was then withdrawn back into the pouch and retroflexed and the area around the dentate line appeared to be within normal limits. The scope was then straightened out, it was subsequently withdrawn after securing an adequate stool for specimen that was sent for the appropriate stool studies. The patient tolerated procedure well. IMPRESSION: 1. Ulcerated neoterminal ileum. Biopsies obtained. 2. No gross evidence of pouchitis. Biopsies obtained. PLAN: Followup histology. Check calprotectin, CRP. Will need IBD panel if not done. The patient will need to be initiated on a biologic. Neoterminal ileum will need to be re-evaluated in 3 to 6 months after initiation of biologic therapy. Morgan Roy MD [facility] [place]/MODL /[id number] cc: Yaquelin Ruelas MD
== END | disposition home or self-care (01) ==
LOC: OR 08:49
PROVIDERS: ATTEND Internal Medicine Gastroenterology
DX: K50.90 Crohn's disease, unspecified, without complications (principal); Z88.0 Allergy status to penicillin; D64.9 Anemia, unspecified; K52.9 Noninfective gastroenteritis and colitis, unspecified; R03.0 Elevated blood-pressure reading, without diagnosis of hypertension; K20.9 Esophagitis, unspecified; K29.70 Gastritis, unspecified, without bleeding; K63.3 Ulcer of intestine; Z01.812 Encounter for preprocedural laboratory examination
CPT/HCPCS: 36415; 43239; 45380; 81025; 83630; 83993; 85651; 86140; 86256; 86671; 87045; 87177; 87328; 87493; J2250; J2704; J3010

== ENCOUNTER 2020-07-30 23:18 | Emergency (ER) | payer OTHER ==
[~2020-07-30] VITALS: Ht 160 cm; Wt 70.3 kg
[~2020-07-30 23:18] MED LIST changes: -FENTANYL CITRATE/PF 100MCG/2 ML INJ ONE; -HYOSCYAMINE 0.125 MG TAB ONE; -MIDAZOLAM HCL 2 MG/2 ML VIAL ONE; -PROPOFOL IV EMULSION 10 MG/ML 50 ML VIAL ONE
[2020-07-31] MEDS ORDERED: ONDANSETRON HCL INJ 2MG/ML 2ML 2 MG/ML VIAL IV STA (00:23)
[2020-07-31] MEDS ORDERED: SODIUM CHLORIDE 0.9% 1000ML 1,000 ML IV ONE (00:30)
--- NOTE | 2020-07-31 00:40 | Emergency Department Note ---
History of Present Illnes History of Present Illness Chief Complaint: Abdominal Complaints History of Present Illness This is a 44 year old female PRESENTS TO ED C/O WORSE THAN NORMAL CROHN'S DISEASE PAIN DESCRIBED CRAMPING WITH INTERMITTENT SHARP SPASMS TO LLQ, WORSENED TODAY, +N/-V/D; NAD NOTED . Historian: Patient Arrival Mode: Car Onset (how long ago): hour(s) (12) Location: llq Quality: pain Radiation: Reports non-radiation Severity: moderate Onset quality: gradual Duration (how long): hour(s) (12) Timing of current episode: constant Progression: worsening Chronicity: recurrent Context: Denies recent illness, Denies recent surgery Relieving factors: none Exacerbating factors: none Associated symptoms: Reports nausea/vomiting (nausea only, no vomiting, no diarrhea) Past Medical/Family History Physician Review I have reviewed the patient's past medical and family history. Any updates have been documented here. Past Medical History Recent Fever: No Clinical Suspicion of Infectio: No New/Unexplained Change in Ment: No Other Medical History: COLITIS, CROHNS Past Surgical History: Tubal Ligation Other Surgery: J POUCH SX Social History Smoking Cessation: Never Smoker Counseling Performed: No Alcohol Use: Occasional Any Illegal Drug Use: No Physically hurt or threatened: No Other Last Tetanus: UTD Any Pre-Existing Lines (PICC,: No Review of Systems Review of Systems Constitutional: Reports no symptoms EENTM: Reports no symptoms Cardiovascular: Reports no symptoms Respiratory: Reports no symptoms Gastrointestinal: Reports as per HPI Genitourinary: Reports no symptoms Musculoskeletal: Reports no symptoms Integumentary: Reports no symptoms Neurological: Reports no symptoms Psychological: Reports no symptoms Endocrine: Reports no symptoms Hematological/Lymphatic: Reports no symptoms Physical Exam Related Data Allergies: Coded Allergies: No Known Allergies (Unverified , 07/31/20) Triage Vital Signs Vital Signs Date Time Temp Pulse Resp B/P (MAP) Pulse Ox O2 Delivery O2 Flow Rate FiO2 07/31/20 00:11 99.4 100 17 148/99 100 Room Air Vital signs reviewed: Yes Physical Exam CONSTITUTIONAL Constitutional: Present well-developed, Present well-nourished HENT HENT: Present normocephalic, Present atraumatic, Present oropharynx c lear/moist, Present nose normal HENT L/R: Present left ext ear normal, Present right ext ear normal EYES Eyes: Reports PERRL, Reports conjunctivae normal NECK Neck: Present ROM normal PULMONARY Pulmonary: Present effort normal, Present breath sounds normal CARDIOVASCULAR Cardiovascular: Present regular rhythm, Present heart sounds normal, Present capillary refill normal, Present normal rate GASTROINTESTINAL Abdominal: Present soft, Present bowel sounds normal, Present tender (mild llq tenderness) GENITOURINARY Genitourinary: Present exam deferred SKIN Skin: Present warm, Present dry MUSCULOSKELETAL Musculoskeletal: Present ROM normal NEUROLOGICAL Neurological: Present alert, Present oriented x 3, Present no gross motor or sensory deficits PSYCHOLOGICAL Psychological: Present mood/affect normal, Present judgement normal Results Laboratory Laboratory Laboratory Tests Test 07/31/20 00:23 White Blood Count 11.31 x10e3/uL (4.8-10.8) Red Blood Count 4.26 x10e6/uL (3.6-5.1) Hemoglobin 11.1 g/dL (12.0-16.0) Hematocrit 34.9 % (34.2-44.1) Mean Corpuscular Volume 81.9 fL (81-99) Mean Corpuscular Hemoglobin 26.1 pg (28-32) Mean Corpuscular Hemoglobin Concent 31.8 g/dL (31-35) Red Cell Distribution Width 13.9 % (11.7-14.4) Platelet Count 380 x10e3/uL (140-360) Neutrophils (%) (Auto) 67.9 % (38.7-80.0) Lymphocytes (%) (Auto) 19.5 % (18.0-39.1) Monocytes (%) (Auto) 11.4 % (4.4-11.3) Eosinophils (%) (Auto) 0.4 % (0.0-6.0) Basophils (%) (Auto) 0.4 % (0.0-1.0) Neutrophils # (Auto) 7.7 (2.1-6.9) Lymphocytes # (Auto) 2.2 (1.0-3.2) Monocytes # (Auto) 1.3 (0.2-0.8) Eosinophils # (Auto) 0.1 (0.0-0.4) Basophils # (Auto) 0.1 (0.0-0.1) Absolute Immature Granulocyte (auto 0.04 x10e3/uL (0-0.1) Urine Color Yellow (YELLOW) Urine Clarity Clear (CLEAR) Urine pH 5.5 (5 - 7) Urine Specific [place] >=1.030 (1.010-1.025) Urine Protein Negative (NEGATIVE) Urine Glucose (UA) Negative (NEGATIVE) Urine Ketones Trace (NEGATIVE) Urine Blood Negative (NEGATIVE) Urine Nitrite Negative (NEGATIVE) Urine Bilirubin Negative (NEGATIVE) Urine Urobilinogen 0.2 mg/dL (0.2 - 1) Urine Leukocyte Esterase Negative (NEGATIVE) Urine RBC None /HPF (0-5) Urine WBC 6-10 /HPF (0-5) Urine Epithelial Cells Moderate /LPF (NONE) Urine Bacteria Moderate /HPF (NONE) Sodium Level 139 mmol/L (136-145) Potassium Level 3.1 mmol/L (3.5-5.1) Chloride Level 104 mmol/L (98-107) Carbon Dioxide Level 23 mmol/L (22-29) Anion Gap 15.1 mmol/L (8-16) Blood Urea Nitrogen 9 mg/dL (7-26) Creatinine 0.96 mg/dL (0.57-1.11) Estimat Glomerular Filtration Rate > 60 ML/MIN (60-) BUN/Creatinine Ratio 9 (6-25) Glucose Level 107 mg/dL (74-118) Calcium Level 8.6 mg/dL (8.4-10.2) Total Bilirubin 0.4 mg/dL (0.2-1.2) Aspartate Amino Transf (AST/SGOT) 21 IU/L (5-34) Alanine Aminotransferase (ALT/SGPT) 14 IU/L (0-55) Alkaline Phosphatase 80 IU/L (40-150) Total Protein 6.8 g/dL (6.5-8.1) Albumin 3.7 g/dL (3.5-5.0) Globulin 3.1 g/dL (2.3-3.5) Albumin/Globulin Ratio 1.2 (0.8-2.0) Amylase Level 12 U/L (25-125) Lipase 15 U/L (8-78) Lab results reviewed: Yes Imaging Imaging results reviewed: Yes Impressions Procedure: [id number] CT/CT ABDOMEN/PELVIS W Exam Date: 07/31/20 Exam Time: 134 REPORT STATUS: Signed EXAM: CT Abdomen and Pelvis WITH contrast INDICATION: ^abd pain ^[id number] ^[id number] ^Y COMPARISON: Abdominal CT 07/27/2019 TECHNIQUE: Abdomen and pelvis were scanned utilizing a multidetector helical scanner from the lung base to the pubic symphysis after administration of IV contrast. Coronal and sagittal reformations were obtained. Routine protocol was performed. Scan was performed when during portal venous phase. IV CONTRAST: 100 mL of Isovue 370 ORAL CONTRAST: None COMPLICATIONS: None RADIATION DOSE: Total DLP: 439 mGy*cm Estimated effective dose: (DLP x 0.015 x size factor) mSv CTDIvol has been reviewed. It is below the limits set by the Radiation Protocol Committee (RPC). Dose modulation, iterative reconstruction, and/or weight based adjustment of the mA/kV was utilized to reduce the radiation dose to as low as reasonably achievable. FINDINGS: LINES and TUBES: None. LOWER THORAX: Unremarkable HEPATOBILIARY: No focal hepatic lesions. No biliary ductal dilation. GALLBLADDER: No radio-opaque stones or sludge. No wall thickening. SPLEEN: No splenomegaly. PANCREAS: No focal masses or ductal dilatation. ADRENALS: No adrenal nodules KIDNEYS/URETERS: Kidneys enhance symmetrically. No hydronephrosis. No cystic or solid mass lesions. No stones. GI TRACT: Persistent/recurrent air and fluid distention of dilated small bowel loops, mostly in the right mid abdomen. No wall thickening or periintestinal fat stranding. Status post total coloproctectomy, with ileoanal anastomosis. PELVIC ORGANS/BLADDER: Unremarkable. LYMPH NODES: Persistent mild prominence of right mesenteric lymph nodes, without suspicious features. VESSELS: Unremarkable. PERITONEUM / RETROPERITONEUM: No free air or fluid. BONES: Unremarkable. SOFT TISSUES: Unremarkable. IMPRESSION: Persistent/recurrent air and fluid distention of dilated small bowel loops, mostly in the right hemiabdomen, possibly due to partial small bowel obstruction versus hypoperistaltic/nonperistaltic postsurgerized bowel. No definitive evidence of active inflammatory bowel disease. Signed by: Davis Herron DO on 07/31/2020 2:40 AM Assessment & Plan Medical Decision Making MDM pt with llq pain cbc, cmp, amylase, lipase, ct abd/pelvis ordered to eval for colitis, diverticulitis, sbo, bowel perforation, pancreatitis, electrolyte abnormality, uti, kidney stones pt with partial sbo will need transfer to another hospital as this facility has no beds available for admission I SPOKE WITH DR COMBS AT [facility] Assessment & Plan Final Impression: (1) Partial obstruction of small intestine (2) Abdominal pain Depart Disposition: TRANS TO OTHER [facility] Last Vital Signs Date Time Temp Pulse Resp B/P (MAP) Pulse Ox O2 Delivery O2 Flow Rate FiO2 07/31/20 00:11 99.4 100 17 148/99 100 Room Air Home Meds Reported Medications [Iron] No Conflict Check, PO DAILY 08/05/19 Metronidazole (FLAGYL) 250 Mg Tablet, 500 MG PO DAILY 08/02/19 Prednisone (PREDNISONE) 20 Mg Tab, 60 MG PO DAILY, TAB 08/02/19 Levofloxacin (LEVAQUIN) 500 Mg Tablet, 500 MG PO DAILY, TAB 08/02/19 Medications in the ED Sodium Chloride 1,000 ml @ 999 mls/hr Q1H1M ONCE IV ; Start 07/31/20 at 00:30; Stop 07/31/20 at 01:30 Ondansetron HCl 4 mg NOW STAT IV ; Start 07/31/20 at 00:23; Stop 07/31/20 at 00:26; Status DC LEEANNA MOTT MD Jul 31, 2020 00:40
[2020-07-31 00:43] LABS: BASOPHILS # (AUTO) 0.1 (0.0-0.1); BASOPHILS % 0.4 % (0.0-1.0); EOSINOPHILS # (AUTO) 0.1 (0.0-0.4); EOSINOPHILS % 0.4 % (0.0-6.0); HEMATOCRIT 34.9 % (34.2-44.1); HEMOGLOBIN 11.1 g/dL (12.0-16.0); LYMPHOCYTES # (AUTO) 2.2 (1.0-3.2); LYMPHOCYTES % 19.5 % (18.0-39.1); MEAN CORPUSCULAR HEMOGLOBIN 26.1 pg (28-32); MEAN CORPUSCULAR HGB CONC 31.8 g/dL (31-35); MEAN CORPUSCULAR VOLUME 81.9 fL (81-99); MONOCYTES # (AUTO) 1.3 (0.2-0.8); MONOCYTES % 11.4 % (4.4-11.3); NEUTROPHILS # (AUTO) 7.7 (2.1-6.9); NEUTROPHILS % 67.9 % (38.7-80.0); PLATELET COUNT 380 x10e3/uL (140-360); RED BLOOD COUNT 4.26 x10e6/uL (3.6-5.1); RED CELL DISTRIBUTION WIDTH 13.9 % (11.7-14.4)
[2020-07-31 00:55] LABS: ALANINE AMINOTRANSFERASE 14 IU/L (0-55); ALBUMIN 3.7 g/dL (3.5-5.0); ALBUMIN/GLOBULIN RATIO 1.2 (0.8-2.0); ALKALINE PHOSPHATASE 80 IU/L (40-150); ANION GAP 15.1 mmol/L (8-16); BLOOD UREA NITROGEN 9 mg/dL (7-26); BUN/CREATININE RATIO 9 (6-25); CALCIUM 8.6 mg/dL (8.4-10.2); CARBON DIOXIDE 23 mmol/L (22-29); CHLORIDE 104 mmol/L (98-107); CREATININE, SERUM 0.96 mg/dL (0.57-1.11); EST GLOMERULAR FILTRATION RATE > 60 ML/MIN (60-); GLUCOSE 107 mg/dL (74-118); POTASSIUM 3.1 mmol/L (3.5-5.1); SODIUM 139 mmol/L (136-145)
[2020-07-31 01:32] LABS: AMYLASE 12 U/L (25-125); LIPASE 15 U/L (8-78)
[2020-07-31] MEDS ORDERED: IOPAMIDOL 370 MG/ML 200 ML INFUS..BTL INJ ONE (01:38)
[2020-07-31] MEDS ORDERED: SODIUM CHLORIDE 0.9% 50ML 50 ML ONE (01:38)
[2020-07-31 01:45] LABS: CLARITY,URINE CLEAR (CLEAR); COLOR,URINE YELLOW (YELLOW)
[2020-07-31 01:46] LABS: BACTERIA,URINE MODERATE /HPF; BILIRUBIN,URINE NEGATIVE (NEGATIVE); EPITHELIAL CELLS,URINE MODERATE /LPF; KETONES,URINE TRACE (NEGATIVE); LEUKOCYTE ESTERASE ,URINE NEGATIVE (NEGATIVE); NITRITE,URINE NEGATIVE (NEGATIVE); PROTEIN,URINE DIPSTICK NEGATIVE (NEGATIVE); URINE UROBILINOGEN 0.2 mg/dL (0.2 - 1)
--- NOTE | 2020-07-31 02:43 | Diagnostic Imaging Report ---
EXAM: CT Abdomen and Pelvis WITH contrast INDICATION: ^abd pain ^[id number] ^[id number] ^Y COMPARISON: Abdominal CT 07/27/2019 TECHNIQUE: Abdomen and pelvis were scanned utilizing a multidetector helical scanner from the lung base to the pubic symphysis after administration of IV contrast. Coronal and sagittal reformations were obtained. Routine protocol was performed. Scan was performed when during portal venous phase. IV CONTRAST: 100 mL of Isovue 370 ORAL CONTRAST: None COMPLICATIONS: None RADIATION DOSE: Total DLP: 439 mGy*cm Estimated effective dose: (DLP x 0.015 x size factor) mSv CTDIvol has been reviewed. It is below the limits set by the Radiation Protocol Committee (RPC). Dose modulation, iterative reconstruction, and/or weight based adjustment of the mA/kV was utilized to reduce the radiation dose to as low as reasonably achievable. FINDINGS: LINES and TUBES: None. LOWER THORAX: Unremarkable HEPATOBILIARY: No focal hepatic lesions. No biliary ductal dilation. GALLBLADDER: No radio-opaque stones or sludge. No wall thickening. SPLEEN: No splenomegaly. PANCREAS: No focal masses or ductal dilatation. ADRENALS: No adrenal nodules KIDNEYS/URETERS: Kidneys enhance symmetrically. No hydronephrosis. No cystic or solid mass lesions. No stones. GI TRACT: Persistent/recurrent air and fluid distention of dilated small bowel loops, mostly in the right mid abdomen. No wall thickening or periintestinal fat stranding. Status post total coloproctectomy, with ileoanal anastomosis. PELVIC ORGANS/BLADDER: Unremarkable. LYMPH NODES: Persistent mild prominence of right mesenteric lymph nodes, without suspicious features. VESSELS: Unremarkable. PERITONEUM / RETROPERITONEUM: No free air or fluid. BONES: Unremarkable. SOFT TISSUES: Unremarkable. IMPRESSION: Persistent/recurrent air and fluid distention of dilated small bowel loops, mostly in the right hemiabdomen, possibly due to partial small bowel obstruction versus hypoperistaltic/nonperistaltic postsurgerized bowel. No definitive evidence of active inflammatory bowel disease. Signed by: Davis Herron DO on 07/31/2020 2:40 AM
--- OUTSIDE RECORDS SUMMARY | 2020-07-31 03:04 | XMS REPORT | Continuity of Care Document ---
Author Author [facility] t Organization [facility] Address [address] [place] [address] Phone Unavailable Care Team Providers Care City Maintenance Manager Name Role Phone Skyler MUNOZ MD PCP Dacia MOTT Attphys Unavailable HENSLEY, SOUHEIL Attphys Unavailable HENSLEY, SOUHEIL Admphys Unavailable Payers Payer Name Policy Type Policy Number Effective Date Expiration Date Helena Wilcox Pos [id number] 2011 00:00:00 [facility] Problems Condition Name Condition Details Condition Category Status Onset Date Resolution Date Last Treatment Date Treating Clinician Comments Source Acute Crohn's disease with intestinal obstruction Acut e Crohn's disease with intestinal obstruction Problem Active C [facility] Allergies, Adverse Reactions, Alerts Allergy Name Allergy Type Status Severity Reaction(s) Onset Date Inacti ve Date Treating Clinician Comments Source Penicillin Allergy to Substance Active Severe CHEST TIGHTNESS 2012-06-27 00:00:00 [facility] Medications Ordered Medication Name Filled Medication Name Start Date Stop Da te Current Medication? Ordering Clinician Indication Dosage Frequency Signature (SIG) Comments Components Source Lactobacillus Acidophilus (Acidophilus) 1 Each Tab.anival w Lactobacillus Acidophilus (Acidophilus) 1 Each Tab.chew Yes 1 Twice A Day [facility] Levofloxacin (Levaquin) 500 Mg Tablet Levofloxacin (Levaquin) 500 M g Tablet Yes 500 Daily [facility] Metronidazole (Flagyl) 250 Mg Tablet Metronidazole (Flagyl) 250 Mg Tablet Yes 500 Daily [facility] Prednisone 20 Mg Tab Prednisone 20 Mg Tab Yes 20 [facility] Dicyclomine Hcl (Bentyl) 20 Mg Tablet, 20 Mg Oral Dicy clomine Hcl (Bentyl) 20 Mg Tablet, 20 Mg Oral 2014-12-04 00:00:00 No 20 Tid P rn [facility] Escitalopram Oxalate (Lexapro) 10 Mg Tablet, 10 Mg Ora l Escitalopram Oxalate (Lexapro) 10 Mg Tablet, 10 Mg Oral 2014-12-04 00:00:00 No 1 0 [facility] Pantoprazole Sodium (Protonix) 40 Mg Tablet.dr, 40 Mg Oral Pantoprazole Sodium (Protonix) 40 Mg Tablet.dr, 40 Mg Oral 2014-12-04 00:00:00 No 40 Daily [facility] Bentyl , Bentyl , 2012-06-28 00:00:00 No [facility] Protonix , Protonix , 2012-06-28 00:00:00 No [facility] Escitalopram Oxalate 10 Mg Tablet, Escitalopram Oxalate 10 Mg Ta blet, 2012-06-27 00:00:00 No Od [facility] Procedures Procedure Date / Time Performed Performing Clinician [facility] e Computed tomography of abdomen and pelvis with contrast 2018 00:00:00 TREVOR MCINTOSH [facility] Encounters Start Date/Time End Date/Time Encounter Type Admission Type Attendi [facility] Care Facility Care Department Encounter ID Source 2019-07-27 22:43:00 2019-08-02 17:45:00 Discharged Inpatient 1 JIMMIE HENSLEY [facility] [id number] [facility] Results Test Description Test Time Test Comments Results Result Comments Source CT ABDOMEN/PELVIS W 2020-07-31 02:18:00 [facility] : 1975 Sex: F [facility] [address] [address] Patient Name: JAZMIN VASQUEZ MR #: [id number] : 1975 Age/Sex: 44/F Req #: [id number] Adm Physician: Ordered by: LEEANNA MOTT MD Report #: [id number] Location: ER Room/Bed: Procedure: [id number] CT/CT ABDOMEN/PELVIS W Exam Date: 07/31/20 Exam Time: 5 REPORT STATUS: Signed EXAM: CT Abdomen and Pelvis WITH contrast INDICATION: abd pain [id number] Y COMPARISON: Abdominal CT 07/27/2019 TECHNIQUE: Abdomen and pelvis were scanned utilizing a multidetector helical scanner from the lung base to the pubic symphysis after administration of IV contrast. Coronal and sagittal reformations were obtained. Routine protocol was performed. Scan was performed when during portal venous phase. IV CONTRAST: 100 mL of Isovue 370 ORAL CONTRAST: None COMPLICATIONS: None RADIATION DOSE: Total DLP: 439 mGy*cm Estimated effective dose: (DLP x 0.015 x size factor) mSv CTDIvol has been reviewed. It is below the limits set by the Radiation Protocol Committee (RPC). Dose modulation, iterative reconstruction, and/or weight based adjustment of the mA/kV was utilized to reduce the radiation dose to as low as reasonably achievable. FINDINGS: LINES and TUBES: None. LOWER THORAX: Unremarkable HEPATOBILIARY: No focal hepatic lesions. No biliary ductal dilation. GALLBLADDER: No radio-opaque stones or sludge. No wall thickening. SPLEEN: No splenomegaly. PANCREAS: No focal masses or ductal dilatation. ADRENALS: No adrenal nodules KIDNEYS/URETERS: Kidneys enhance symmetrically. No hydronephrosis. No cystic or solid mass lesions. No stones. GI TRACT: Persistent/recurrent air and fluid distention of dilated small bowel loops, mostly in the right mid abdomen. No wall thickening or periintestinal fat stranding. Status post total coloproctectomy, with ileoanal anastomosis. PELVIC ORGANS/BLADDER: Unremarkable. LYMPH NODES: Persistent mild prominence of right mesenteric lymph nodes, without suspicious features. VESSELS: Unremarkable. PERITONEUM / RETROPERITONEUM: No free air or fluid. BONES: Unremarkable. SOFT TISSUES: Unremarkable. IMPRESSION: Persistent/recurrent air and fluid distention of dilated small bowel loops, mostly in the right hemiabdomen, possibly due to partial small bowel obstruction versus hypoperistaltic/nonperistaltic postsurgerized bowel. No definitive evidence of active inflammatory bowel disease. Signed by: Davis Herron DO on 07/31/2020 2:40 AM Dictated By: DAVIS HERRON DO 9 Transcribed By: BIRD on 07/31/20239 COPY TO: LEEANNA MOTT MD Blood Culture 2019-08-02 12:21:00 Test Item Blood Culture (test code = 59855495) NO GROWTH AFTER 5 DAYS, FINAL REPORT [facility]-Reactive Renolmk0007-61-56 20:24:00* Test Item Value Reference Range Interpretation Comments C-Reactive Protein (test code = 1988-5) 204 0-10 H Performed at: - [facility] [id number] Director: Hiren Oleary MD, Phone: [phone] Children's HospitalDifferential Total Cells Nbacdkm1571-58-38 07:37:00* Test Item Value Reference Range Interpretation Comments Differential Total Cells Counted (test code = Differen tial Total Cells Counted) 100 [facility] HospitalNeutrophils % (Manual)2019-08-01 07:37:00 * Test Item Value Reference Range Interpretation Comments Neutrophils % (Manual) (test code = 44723-6) 63 40-74 [facility] HospitalBand Neutrophils %2019-08-01 07:37:00* Test Item Value Reference Range Interpretation Comments Band Neutrophils % (test code = 764-1) 16 [facility] HospitalLymphocytes % (Manual)2019-08-01 07:37:00 * Test Item Value Reference Range Interpretation Comments Lymphocytes % (Manual) (test code = 737-7) 14 19-48 L [facility] HospitalMonocytes % (Manual)2019-08-01 07:37:00* Test Item Value Reference Range Interpretation Comments Monocytes % (Manual) (test code = 744-3) 5 3.4-9.0 [facility] HospitalEosinophils % (Manual)2019-08-01 07:37:00 * Test Item Value Reference Range Interpretation Comments Eosinophils % (Manual) (test code = 714-6) 2 0-7 [facility] HospitalPlatelet Jfsmfpql0170-64-88 07:37:00* Test Item Value Reference Range Interpretation Comments Platelet Estimate (test code = 63552-3) SLIGHTLY INCREASED [facility] HospitalPlatelet Morphology Xracczo5066-77-96 07:37:00* Test Item Value Reference Range Interpretation Comments Platelet Morphology Comment (test code = 66197-8) FEW LARGE [facility] HospitalPolychromasia2019-11-17 07:37:00* Test Item Value Reference Range Interpretation Comments Polychromasia (test code = 17882-4) FEW [facility] HospitalHypochromasia2019-11-17 07:37:00* Test Item Value Reference Range Interpretation Comments Hypochromasia (test code = 728-6) MODERATE [facility] HospitalPoikilocytosis2019-11-17 07:37:00* Test Item Value Reference Range Interpretation Comments Poikilocytosis (test code = 779-9) MODE [facility] HospitalAnisocytosis2019-11-17 07:37:00* Test Item Value Reference Range Interpretation Comments Anisocytosis (test code = 702-1) MODE [facility] HospitalMicrocytosis2019-11-17 07:37:00* Test Item Value Reference Range Interpretation Comments Microcytosis (test code = 741-9) SLIG [facility] HospitalOvalocytes2019-11-17 07:37:00* Test Item Value Reference Range Interpretation Comments Ovalocytes (test code = 774-0) FEW [facility] HospitalRed Cell Morphology Afnlzdv9462-66-57 07:37:00* Test Item Value Reference Range Interpretation Comments Red Cell Morphology Comment (test code = 6742-1) ABNORMAL [facility] Eapot8647-27-62 06:55:00* Test Item Value Reference Range Interpretation Comments Sodium Level (test code = 2951-2) 137 136-145 [facility] HospitalPotassium Znvws9438-31-03 06:55:00* Test Item Value Reference Range Interpretation Comments Potassium Level (test code = 2823-3) 3.8 3.5-5.1 [facility] HospitalChloride Awvoa9418-82-25 06:55:00* Test Item Value Reference Range Interpretation Comments Chloride Level (test code = 2075-0) 103 98-107 [facility] HospitalCarbon Dioxide Ygmar1480-88-43 06:55:00* Test Item Value Reference Range Interpretation Comments Carbon Dioxide Level (test code = 2028-9) 25 22-29 [facility] HospitalAnion Pne5403-70-16 06:55:00* Test Item Value Reference Range Interpretation Comments Anion Gap (test code = 02924-5) 12.8 8-16 [facility] HospitalBlood Urea Nyqifszs4441-94-65 06:55:00* Test Item Value Reference Range Interpretation Comments Blood Urea Nitrogen (test code = 3094-0) 8 7-26 [facility] HospitalCreatinine2019-11-17 06:55:00* Test Item Value Reference Range Interpretation Comments Creatinine (test code = 2160-0) 0.62 0.57-1.11 [facility] HospitalBUN/Creatinine Biqpv1292-93-54 06:55:00* Test Item Value Reference Range Interpretation Comments BUN/Creatinine Ratio (test code = 3097-3) 13 6-25 [facility] HospitalEstimat Glomerular Filtration Rate 2019-08-01 06:55:00* Test Item Value Reference Range Interpretation Comments Estimat Glomerular Filtration Rate (test code = 643547508) > 60 >60 Ranges were taken from the National Kidney Disease Education Program and the [facility] literature.Reference ranges:60 or greater: Rnoluq11-35 ( for 3 consecutive months): Chronic kidney disease 15 or less: Kidney failureTexas Children's HospitalGlucose Ebimi4966-58-27 06:55:00* Test Item Value Reference Range Interpretation Comments Glucose Level (test code = TTP0698) 96 74-118 [facility] HospitalCalcium Sgrvq5887-76-41 06:55:00* Test Item Value Reference Range Interpretation Comments Calcium Level (test code = 01762-4) 8.8 8.4-10.2 [facility] HospitalWhite Blood Bfosk6561-66-14 06:30:00* Test Item Value Reference Range Interpretation Comments White Blood Count (test code = 6690-2) 19.81 4.8-10.8 H [facility] HospitalRed Blood Rjyoo0867-91-81 06:30:00* Test Item Value Reference Range Interpretation Comments Red Blood Count (test code = 789-8) 4.44 3.6-5.1 [facility] HospitalHemoglobin2019-11-17 06:30:00* Test Item Value Reference Range Interpretation Comments Hemoglobin (test code = 00102-1) 8.6 12.0-16.0 L [facility] HospitalHematocrit2019-11-17 06:30:00* Test Item Value Reference Range Interpretation Comments Hematocrit (test code = 4544-3) 29.7 34.2-44.1 L [facility] HospitalMean Corpuscular Gkepfh5977-17-19 06:30:00* Test Item Value Reference Range Interpretation Comments Mean Corpuscular Volume (test code = 787-2) 66.9 81-99 L [facility] HospitalMean Corpuscular Erbjcyjsft4519-13-03 06:30:00* Test Item Value Reference Range Interpretation Comments Mean Corpuscular Hemoglobin (test code = 785-6) 19.4 28-32 L [facility] HospitalMean Corpuscular Hemoglobin Concent 2019-08-01 06:30:00* Test Item Value Reference Range Interpretation Comments Mean Corpuscular Hemoglobin Concent (test code = 786-4) 29.0 31-35 L [facility] HospitalRed Cell Distribution Jntbl2908-05-86 06:30:00* Test Item Value Reference Range Interpretation Comments Red Cell Distribution Width (test code = 16002-3) 20.8 11.7 -14.4 H [facility] HospitalPlatelet Odwzy8930-17-80 06:30:00* Test Item Value Reference Range Interpretation Comments Platelet Count (test code = 777-3) 517 140-360 H [facility] HospitalNeutrophils (%) (Auto)2019-08-01 06:30:00 * Test Item Value Reference Range Interpretation Comments Neutrophils (%) (Auto) (test code = 67900-0) 45.1 38.7-80.0 [facility] HospitalLymphocytes (%) (Auto)2019-08-01 06:30:00 * Test Item Value Reference Range Interpretation Comments Lymphocytes (%) (Auto) (test code = 736-9) 25.5 18.0-39.1 [facility] HospitalMonocytes (%) (Auto)2019-08-01 06:30:00* Test Item Value Reference Range Interpretation Comments Monocytes (%) (Auto) (test code = 5905-5) 6.7 4.4-11.3 [facility] HospitalEosinophils (%) (Auto)2019-08-01 06:30:00 * Test Item Value Reference Range Interpretation Comments Eosinophils (%) (Auto) (test code = 713-8) 0.5 0.0-6.0 [facility] HospitalBasophils (%) (Auto)2019-08-01 06:30:00* Test Item Value Reference Range Interpretation Comments Basophils (%) (Auto) (test code = 706-2) 0.2 0.0-1.0 [facility] HospitalIM GRANULOCYTES %2019-08-01 06:30:00* Test Item Value Reference Range Interpretation Comments IM GRANULOCYTES % (test code = IM GRANULOCYTES %) 22.0 0.0- 1.0 H [facility] HospitalNeutrophils # (Auto)2019-08-01 06:30:00* Test Item Value Reference Range Interpretation Comments Neutrophils # (Auto) (test code = 751-8) 9.0 2.1-6.9 H [facility] HospitalLymphocytes # (Auto)2019-08-01 06:30:00* Test Item Value Reference Range Interpretation Comments Lymphocytes # (Auto) (test code = 54404-8) 5.1 1.0-3.2 H [facility] HospitalMonocytes # (Auto)2019-08-01 06:30:00* Test Item Value Reference Range Interpretation Comments Monocytes # (Auto) (test code = 742-7) 1.3 0.2-0.8 H [facility] HospitalEosinophils # (Auto)2019-08-01 06:30:00* Test Item Value Reference Range Interpretation Comments Eosinophils # (Auto) (test code = 711-2) 0.1 0.0-0.4 [facility] HospitalBasophils # (Auto)2019-08-01 06:30:00* Test Item Value Reference Range Interpretation Comments Basophils # (Auto) (test code = 704-7) 0.0 0.0-0.1 [facility] HospitalAbsolute Immature Granulocyte (auto 2019-08-01 06:30:00* Test Item Value Reference Range Interpretation Comments Absolute Immature Granulocyte (auto (sanna t code = Absolute Immature Granulocyte (auto) 4.36 0-0.1 H [facility] HospitalMagnesium Wekfw8264-42-11 06:50:00* Test Item Value Reference Range Interpretation Comments Magnesium Level (test code = 59206-4) 1.5 1.3-2.1 [facility] HospitalRBC Folate Aevogwkcxw7307-30-78 20:39:00 * Test Item Value Reference Range Interpretation Comments RBC Folate Hemolysate (test code = 2282-2) 364.4 Not Estab. [facility] HospitalHematocrit2019-11-15 20:39:00* Test Item Value Reference Range Interpretation Comments Hematocrit (test code = 4544-3) 22.6 34.0-46.6 L [facility] Folate Wxhrigflwf6044-05-80 20:39:00 * Test Item Value Reference Range Interpretation Comments RBC Folate Hemolysate (test code = 2283-0) 1612 >498 Performed at: - [facility] [id number] Director: Hiren Oleary MD, Phone: [phone] Children's HospitalElliptocytes2019-11-14 12:26:00* Test Item Value Reference Range Interpretation Comments Elliptocytes (test code = 55117-5) SLIGHT [facility] HospitalABDOMEN ACUTE SERIES W/PA ZKX6620-22-73 09:39:00 [address] [address] Patient Name: JAZMIN VASQUEZ MR #: [id number] : 1975 Age/Sex: 43/F Req #: [id number] Adm Physician: JIMMIE HENSLEY MD Ordered by: MARQUISE ALEMAN MD Report #: [id number] Location: [facility] Room/Bed: [facility] Procedure: [id number] DX/ABDOMEN ACUTE SERIES W/PA CXR Exam Date: 07/29/19 Exam Time: 0910 REPORT STATUS: Signed EXAMINATION: ABDOMEN ACUTE SERIES W/PA CXR INDICATIO N: Small bowel obstruction COMPARISON: CT abdomen and pelvis of 07/27/2019 FINDINGS: LINES/TUBES:EKG leads overlie the chest. LUNGS:The lungs are mildly hyperinflated. Mild bibasilar subsegmental atelectasis. No f ocal consolidation or pulmonary edema. PLEURA:No pleural effusion or pneumo thorax. MEDIASTINUM:The cardiomediastinal silhouette appears normal in size and shape. BONES/SOFT TISSUES:No acute osseous injury. ABDOMEN:Again seen are air-filled distended loops of large and small bowel measuring up to 9 .2 cm maximum diameter in the right upper quadrant. No free air. No pneumatosi s. IMPRESSION: Air-filled loops of large and small bowel, not signifi cantly changed from the prior CT of 07/27/2019. No free air. No focal pne umonia or pulmonary edema. Signed by: Ayan Hudson MD on 07/29/2019 9:44 AM Dictated By: AYAN HUDSON MD 3 COPY TO: MARQUISE ALEMAN MD Total Irvjooadf7237-07-40 08:22:00* Test Item Value Reference Range Interpretation Comments Total Bilirubin (test code = 1975-2) 0.2 0.2-1.2 [facility] HospitalAspartate Amino Transf (AST/SGOT) 2019-07-29 08:22:00* Test Item Value Reference Range Interpretation Comments Aspartate Amino Transf (AST/SGOT) (test code = Aspartate Amino Transf (AST/SGOT)) 9 5-34 [facility] HospitalAlanine Aminotransferase (ALT/SGPT) 2019-07-29 08:22:00* Test Item Value Reference Range Interpretation Comments Alanine Aminotransferase (ALT/SGPT) (test code = 1742-6) < 6 0-55 [facility] HospitalTotal Smrfvfu2853-86-35 08:22:00* Test Item Value Reference Range Interpretation Comments Total Protein (test code = 2885-2) 6.5 6.5-8.1 [facility] HospitalAlbumin2019-11-14 08:22:00* Test Item Value Reference Range Interpretation Comments Albumin (test code = 1751-7) 2.8 3.5-5.0 L [facility] HospitalGlobulin2019-11-14 08:22:00* Test Item Value Reference Range Interpretation Comments Globulin (test code = 81023-5) 3.7 2.3-3.5 H [facility] HospitalAlbumin/Globulin Apvcy2756-75-65 08:22:00 * Test Item Value Reference Range Interpretation Comments Albumin/Globulin Ratio (test code = 1759-0) 0.8 0.8-2.0 [facility] HospitalAlkaline Asrfzmzyytv1255-29-04 08:22:00* Test Item Value Reference Range Interpretation Comments Alkaline Phosphatase (test code = 6768-6) 99 40-150 [facility] HospitalVitamin B12 Dlbbd1911-72-13 21:53:00* Test Item Value Reference Range Interpretation Comments Vitamin B12 Level (test code = 09791-1) 609 213-816 [facility] HospitalFerritin2019-11-13 21:43:00* Test Item Value Reference Range Interpretation Comments Ferritin (test code = 2276-4) 33.84 4.63-204.00 [facility] HospitalErythrocyte Sedimentation Njwd0533-15-94 21:32:00* Test Item Value Reference Range Interpretation Comments Erythrocyte Sedimentation Rate (test code = 4537-7) 62 0- 20 H [facility] HospitalIron Gewpx4954-54-30 21:22:00* Test Item Value Reference Range Interpretation Comments Iron Level (test code = 2498-4) 9 50-170 L [facility] HospitalTotal Iron Binding Fkmmiolu2185-31-67 21:22:00* Test Item Value Reference Range Interpretation Comments Total Iron Binding Capacity (test code = 2500-7) 433 261-4 78 [facility] HospitalPercent Iron Hfbhiebzol6242-05-13 21:22:00* Test Item Value Reference Range Interpretation Comments Percent Iron Saturation (test code = 2502-3) 2 15-50 L [facility] HospitalTransferrin2019-11-13 21:22:00* Test Item Value Reference Range Interpretation Comments Transferrin (test code = 3034-6) 309 180-382 [facility] HospitalUrine OZK9918-73-16 22:28:00* Test Item Value Reference Range Interpretation Comments Urine WBC (test code = 5821-4) NONE 0-5 [facility] HospitalUrine OHZ1572-44-56 22:28:00* Test Item Value Reference Range Interpretation Comments Urine RBC (test code = 75815-1) NONE 0-5 [facility] HospitalUrine Jqhxpfss1716-44-59 22:28:00* Test Item Value Reference Range Interpretation Comments Urine Bacteria (test code = 41475-7) FEW NONE [facility] HospitalUrine Epithelial Ghlqv7338-66-99 22:28:00 * Test Item Value Reference Range Interpretation Comments Urine Epithelial Cells (test code = 23123-5) MANY NONE [facility] HospitalUrine Gsdap9762-47-63 22:24:00* Test Item Value Reference Range Interpretation Comments Urine Color (test code = 5778-6) YELLOW YELLOW [facility] HospitalUrine Pgxpzen7148-52-62 22:24:00* Test Item Value Reference Range Interpretation Comments Urine Clarity (test code = 76269-5) SL CLOUDY CLEAR [facility] HospitalUrine Specific Lmxkiiq6690-13-24 22:24:00 * Test Item Value Reference Range Interpretation Comments Urine Specific Sublimity (test code = 5811-5) <=1.005 1.010-1.02 5 [facility] HospitalUrine mW1132-07-22 22:24:00* Test Item Value Reference Range Interpretation Comments Urine pH (test code = 28351-8) 6 5-7 [facility] HospitalU[facility] Leukocyte Uqzaxkna0875-01-52 22:24:00* Test Item Value Reference Range Interpretation Comments Urine Leukocyte Esterase (test code = 38614-5) NEGATIVE NEGATIV E [facility] HospitalUrine Ouraibg5362-75-75 22:24:00* Test Item Value Reference Range Interpretation Comments Urine Nitrite (test code = 25970-8) NEGATIVE NEGATIVE [facility] HospitalUrine Ccmndrv8516-00-41 22:24:00* Test Item Value Reference Range Interpretation Comments Urine Protein (test code = 61566-1) TRACE NEGATIVE H [facility] HospitalUrine Glucose (UA)2019-07-27 22:24:00* Test Item Value Reference Range Interpretation Comments Urine Glucose (UA) (test code = 72965-3) NEGATIVE NEGATIVE [facility] HospitalUrine Ujxynqq6866-54-31 22:24:00* Test Item Value Reference Range Interpretation Comments Urine Ketones (test code = 09274-8) NEGATIVE NEGATIVE [facility] HospitalUrine Breinuqlsnoy2307-75-69 22:24:00* Test Item Value Reference Range Interpretation Comments Urine Urobilinogen (test code = 87950-5) 0.2 0.2-1 [facility] HospitalUrine Qsokiqtjr4311-52-11 22:24:00* Test Item Value Reference Range Interpretation Comments Urine Bilirubin (test code = 1977-8) NEGATIVE NEGATIVE [facility] HospitalUrine Mdblo8226-04-06 22:24:00* Test Item Value Reference Range Interpretation Comments Urine Blood (test code = 84176-7) NEGATIVE NEGATIVE [facility] HospitalCT ABDOMEN/PELVIS O6946-05-49 22:15:00 [place] [address] Patient Name: JAZMIN VASQUEZ MR #: [id number] : 1975 Age/Sex: 43/F Req #: [id number] Adm Physician: Ordered by: TREVOR MCINTOSH DO Report #: [id number] Location: ER Room/Bed: Procedure: CT/CT ABDOMEN/PELVIS W Exam Date: 07/27/19 E xam Time: 0889 REPORT STATUS: Kirsten d CT Abdomen And Pelvis with Intravenous Contrast INDICATION: Nodule/vom iting, history of Crohn's disease abd pain TECHNIQUE: Thin collimation axial images obtained from the diaphragm to the level of the pubic symphysis following the uneventful administration of 100 cc of low osmolar, nonionic in travenous contrast. Dose reduction techniques used: Automated exposure cont rol, adjustment of the mAs and/or kVp according to patient size, standardized low-dose protocol, and/or iterative reconstruction technique. RADIATIO N DOSE: Total DLP: 203.73 mGy*cm Estimated effective dose: (DL P x 0.015 x size factor) mSv CTDIvol has been reviewed. It is below the l imits set by the Radiation Protocol Committee (RPC). COMPARISON: Report o f CT of the abdomen/pelvis performed 06/27/2012. ABDOMEN FINDINGS: Shelia ng Bases: Trace bibasilar atelectasis. Visualized portion of the mediastinum i s normal Liver: Mild steatosis. No evidence for mass. Gallbladder: Pr esent and appears normal. No biliary ductal dilatation. Pancreas: Normal at tenuation without mass or ductal dilatation. Spleen: Normal in size. No ev idence of mass.. Adrenal Glands: No evidence for mass. Kidneys: Right: Normal enhancement. No soft tissue mass. No hydronephrosis. Left: Normal enhancement. No soft tissue mass. No hydronephrosis. Aorta: Nor mal in diameter PELVIS FINDINGS: Bowel: Stomach: Distended with f luid. No mural thickening.. Small/large bowel: The large bowel appears to be a bsent. The distal small bowel is dilated to a diameter of 8 cm and is located predominantly in the midabdomen extending to the left of midline. The transiti on point is at the aortic bifurcation where the bowel is diffusely narrowed (a xial image 52; coronal image 38) and takes a curved course. There is circumfer ential mural thickening and mural hyperemia with adjacent lymph node enlargeme nt. Distal to this, the bowel contains fluid and semisolid stool. Other small bowel loops are distended with air. No associated mural thickening. Normal in caliber with normal wall thickness. Lymph nodes: Lymph nodes in the sma ll bowel mesentery surrounding the luminal narrowing of the small bowel measur ing up to 18 mm. Bladder: Normal. The uterus is present and normal in morphology. No adnexal mass. Peritoneum/retroperitoneum: No free fluid or flui d collection. Bones: Unremarkable for age. IMPRESSION: Status pos t total colectomy. High-grade partial small bowel obstruction possibly due to active Crohn's flare given the presence of surrounding lymphadenopathy. Anoth er etiology to consider would be a high-grade stricture. There is no conclusiv e evidence of an internal hernia. Signed by: Dr. Branden Peng MD o n 07/27/2019 10:29 PM Dictated By: BRANDEN PENG MD Electronically S igned By: BRANDEN PENG MD on 07/27/192228 Transcribed By: BIRD on 07/16 COPY TO: TREVOR MCINTOSH DO Lactic Acid Level 2019-07-27 22:14:00* Test Item Value Reference Range Interpretation Comments Lactic Acid Level (test code = Lactic Acid Level) 0.9 0.5- 2.0 [facility] Test Item Value Reference Range Interpretation Comments Lipase (test code = 3040-3) 42 8-78 [facility] [id number] 21:06:00* Test Item Value Reference Range Interpretation Comments Creatine Kinase MB (test code = 86609-2) 1.20 0-5.0 [facility] [id number] 21:06:00* Test Item Value Reference Range Interpretation Comments Troponin I (test code = HNP7611) 0.003 0-0.300 [facility] [id number] 21:02:00* Test Item Value Reference Range Interpretation Comments Creatine Kinase (test code = 2157-6) 29 29-168 [facility]
[2020-07-31] MEDS ORDERED: KCL 20MEQ/.9 SOD CHL 1,000 ML IV ONE (03:30)
--- NOTE | 2020-07-31 04:31 | NUR ---
CONTACTED [facility] FOR TRANSPORT TO [facility], ETA 30-40 MIN AT THIS TIME.
[2020-07-31 05:26] VITALS: BP 127/66
== END 2020-07-31 05:27 | disposition other institution (70) ==
LOC: ER 07-31 00:02
DX: K56.600 Partial intestinal obstruction, unspecified as to cause (principal); R10.32 Left lower quadrant pain; R11.0 Nausea; Z87.19 Personal history of other diseases of the digestive system
CPT/HCPCS: 36415; 74177; 80053; 81001; 82150; 83690; 85025; 99284; J2405; J7030; Q9967

== ENCOUNTER → 2021-05-16 | Day surgery (SDC) | payer OTHER ==
[~2021-05-16] MED LIST changes: +METHYLPREDNISOLONE SOD SUCC 125 MG/2ML VIAL IV ONE
[2021-05-16 15:36] VITALS: BP 107/82
[2021-05-16 15:43] LABS: BASOPHILS # (AUTO) 0.1 (0.0-0.1); BASOPHILS % 0.7 % (0.0-1.0); EOSINOPHILS # (AUTO) 0.1 (0.0-0.4); EOSINOPHILS % 1.2 % (0.0-6.0); HEMATOCRIT 38.9 % (34.2-44.1); HEMOGLOBIN 11.7 g/dL (12.0-16.0); LYMPHOCYTES # (AUTO) 2.2 (1.0-3.2); LYMPHOCYTES % 19.3 % (18.0-39.1); MEAN CORPUSCULAR HEMOGLOBIN 22.8 pg (28-32); MEAN CORPUSCULAR HGB CONC 30.1 g/dL (31-35); MEAN CORPUSCULAR VOLUME 75.8 fL (81-99); MONOCYTES # (AUTO) 0.7 (0.2-0.8); MONOCYTES % 6.3 % (4.4-11.3); NEUTROPHILS # (AUTO) 8.1 (2.1-6.9); NEUTROPHILS % 72.1 % (38.7-80.0); PLATELET COUNT 419 x10e3/uL (140-360); RED BLOOD COUNT 5.13 x10e6/uL (3.6-5.1); RED CELL DISTRIBUTION WIDTH 16.8 % (11.7-14.4)
[2021-05-16 15:52] LABS: WBC,FECAL (FECAL LACTOFERRIN) POSITIVE (NEGATIVE)
[2021-05-17 12:12] LABS: C DIFFICILE TOXIN A&B AMP PROB NEGATIVE (NEGATIVE)
== END | disposition home or self-care (01) ==
LOC: OR 12:05
PROVIDERS: ATTEND Internal Medicine Gastroenterology
DX: K50.018 Crohn's disease of small intestine with other complication (principal); K63.5 Polyp of colon; K63.3 Ulcer of intestine; Z90.49 Acquired absence of other specified parts of digestive tract; Z98.0 Intestinal bypass and anastomosis status; Z88.0 Allergy status to penicillin; Z01.812 Encounter for preprocedural laboratory examination; Z20.822 Contact with and (suspected) exposure to COVID-19; Z68.33 Body mass index [BMI] 33.0-33.9, adult
CPT/HCPCS: 36415; 45380; 81025; 83630; 83993; 85025; 87045; 87177; 87328; 87493; J2930; U0002; 45378

== ENCOUNTER → 2021-05-23 | Outpatient (CLI) | payer OTHER ==
[~2021-05-23] MED LIST changes: -METHYLPREDNISOLONE SOD SUCC 125 MG/2ML VIAL IV ONE
== END ==
LOC: DX 08:04
PROVIDERS: ATTEND Internal Medicine Gastroenterology
DX: K50.018 Crohn's disease of small intestine with other complication (principal); Z20.822 Contact with and (suspected) exposure to COVID-19
CPT/HCPCS: 74250; U0002

== ENCOUNTER → 2021-10-01 | Outpatient (CLI) | payer OTHER ==
[~2021-10-01] MED LIST changes: +BUDESONIDE EC3 MG PO; +DICYCLOMINE HCL20 MG PO; +LOMOTIL TABLET1 EACH PO; +VSL#3 CAPSULE1 EACH PO
== END | disposition home or self-care (01) ==
LOC: OR 11:22 → DX 11:22 → EDSTATUS 13:00
PROVIDERS: ATTEND Internal Medicine Gastroenterology
DX: K50.90 Crohn's disease, unspecified, without complications (principal); U07.1 COVID-19; Z53.8 Procedure and treatment not carried out for other reasons
CPT/HCPCS: U0002

== ENCOUNTER → 2021-10-17 | Day surgery (SDC) | payer OTHER ==
[~2021-10-17] MED LIST changes: +FENTANYL CITRATE/PF 100MCG/2 ML INJ ONE; +LIDOCAINE HCL 2% LOCAL INJ 5 ML SDV VIAL INJ ONE; +MIDAZOLAM HCL 2 MG/2 ML VIAL ONE; +PROPOFOL IV EMULSION 10 MG/ML 20 ML VIAL ONE
[2021-10-17 10:00] VITALS: BP 103/74
[2021-10-17 14:12] LABS: WBC,FECAL (FECAL LACTOFERRIN) POSITIVE (NEGATIVE)
[2021-10-19 14:54] LABS: C DIFFICILE TOXIN A&B AMP PROB NEGATIVE (NEGATIVE)
== END | disposition home or self-care (01) ==
LOC: OR 07:51
PROVIDERS: ATTEND Internal Medicine Gastroenterology
DX: K50.90 Crohn's disease, unspecified, without complications (principal); K63.3 Ulcer of intestine; K63.89 Other specified diseases of intestine; Z98.0 Intestinal bypass and anastomosis status; Z68.33 Body mass index [BMI] 33.0-33.9, adult; Z86.16 Personal history of COVID-19
CPT/HCPCS: 45380; 81025; 83630; 83993; 87045; 87177; 87328; 87493; J2001; J2250; J2704; J3010; 45378

== ENCOUNTER → 2023-01-23 | Day surgery (SDC) | payer OTHER ==
[~2023-01-23] MED LIST changes: +ABILIFY5 MG PO; +HYDROXYZINE HCL25 MG PO; +LACTATED RINGER'S 1,000 ML ONE; -LIDOCAINE HCL 2% LOCAL INJ 5 ML SDV VIAL INJ ONE; +MULTI-VITAMIN1 EACH PO; +OXYBUTYNIN CHLOR5 M1 PO; +STELARA45 MG/0.1
[2023-01-23 09:16] VITALS: TEMP 97.5
[2023-01-23 09:30] VITALS: BP 106/69; PULSE 70; RESP 16; O2SAT 96
== END | disposition home or self-care (01) ==
LOC: OR 06:41
PROVIDERS: ATTEND Internal Medicine Gastroenterology
DX: K50.018 Crohn's disease of small intestine with other complication (principal); K63.5 Polyp of colon; Z90.49 Acquired absence of other specified parts of digestive tract; Z98.0 Intestinal bypass and anastomosis status; Z71.3 Dietary counseling and surveillance; Z88.0 Allergy status to penicillin; Z01.810 Encounter for preprocedural cardiovascular examination; Z79.899 Other long term (current) drug therapy; Z68.31 Body mass index [BMI] 31.0-31.9, adult
CPT/HCPCS: 45380; 81025; 83630; 83993; 86140; 87045; 87177; 87324; 87328; 87449; 93005; J2250; J2704; J3010; J7121; 45378